=== PATIENT | female | born 1980 | race Two or more races ===

== ENCOUNTER 2021-07-01 00:25 | Emergency (ER) | payer OTHER ==
[~2021-07-01] VITALS: Ht 149.9 cm; Wt 63.5 kg
[2021-07-01] MEDS ORDERED: PRENATAL TABLE1 EAC2 (00:39)
[2021-07-01] MEDS ORDERED: FOLIC ACID20 MG (00:40)
[2021-07-01] MEDS ORDERED: CEPHALEXIN500 MG PO (05:11)
== END 2021-07-01 05:15 ==
LOC: ER 00:25
DX: O20.8 Other hemorrhage in early pregnancy (principal); Z3A.01 Less than 8 weeks gestation of pregnancy; N39.0 Urinary tract infection, site not specified

== ENCOUNTER 2021-07-21 06:56 | Day surgery (SDC) | payer OTHER ==
[~2021-07-21] VITALS: Ht 152.4 cm; Wt 65.3 kg
[~2021-07-21 06:56] MED LIST: CEPHALEXIN500 MG PO; FOLIC ACID20 MG; PRENATAL TABLE1 EAC2
== END 2021-07-21 18:15 | disposition home or self-care (01) ==
LOC: ER 06:56 → CIR.AMB 07:40
PROVIDERS: ATTEND Specialist
DX: O02.1 Missed abortion (principal); Z20.822 Contact with and (suspected) exposure to COVID-19; Z91.018 Allergy to other foods; E11.9 Type 2 diabetes mellitus without complications; E06.3 Autoimmune thyroiditis; K21.9 Gastro-esophageal reflux disease without esophagitis